=== PATIENT | male | born 1955 | race Caucasian/White ===

== ENCOUNTER 2020-05-08 17:25 | Inpatient (IN) | payer BC ==
[2020-05-08] MEDS ORDERED: diphenhydrAMINE 50 MG/ML VIAL ONE (18:18)
[2020-05-08] MEDS ORDERED: Metoclopramide HCl 10 MG/2 ML VIAL ONE (18:18)
[2020-05-08 18:28] LABS: #Eosinphils 0.1 10x3/uL (0.0-0.5); #Monocytes 0.6 10x3/uL (0.0-1.1); #Neutrophils 5.3 10x3/uL (1.5-8.4); %Basophils 0.4 % (0.0-2.0); %Lymphocytes 35.9 % (18.0-47.0); %Monocytes 6.4 % (0.0-10.0); %Neutrophils 55.9 % (40.0-75.0); Hemoglobin 14.3 g/dL (13.5-17.5); Mean Corpuscular HGB CONC 33.9 g/dL (32.0-36.0); Mean Corpuscular Volume 94.4 fl (81.2-95.1); Mean Platelet Volume 8.7 fl (7.4-10.4); Platelet Count 255 10x3/uL (150-450); RBC Distribution Width 12.4 % (11.5-14.5); Red Blood Cell (RBC) Count 4.47 10x6/uL (4.32-5.72); White Blood Cell (WBC) Count 9.6 10x3/uL (3.5-10.5)
[2020-05-08] MEDS ORDERED: Lidocaine 1% (PF) 30 ML VIAL ONE (18:37)
[2020-05-08 18:47] LABS: ALT (SGPT) 34 U/L (8-55); AST (SGOT) 20 U/L (5-34); Albumin 4.5 g/dL (3.4-4.8); Alkaline Phosphatase 64 U/L (40-110); Anion Gap 11 mmol/L (10-20); BUN (Urea Nitrogen) 20 mg/dL (8.4-25.7); Bilirubin, Total 0.6 mg/dL (0.2-1.2); Calc. Creatinine Clearance 0 mL/min (70-130); Calcium 9.4 mg/dL (7.8-10.44); Carbon Dioxide 28 mmol/L (23-31); Chloride 103 mmol/L (98-107); Globulin 2.8 g/dL (2.4-3.5); Glucose 111 mg/dL (80-115); Potassium 4.2 mmol/L (3.5-5.1); Protein, Total 7.3 g/dL (5.8-8.1); Sodium 138 mmol/L (136-145)
[2020-05-08 19:32] LABS: CSF, Glucose 47 mg/dl (40-70); CSF, Protein 167 mg/dL (15-40)
[2020-05-08 20:05] LABS: CSF Source CSF; Clarity Hazy (Clear); Tube # 1
[2020-05-08 20:08] LABS: CSF RBC Count - Manual 77 /cu.mm (None Seen); CSF WBC/NonHematics Count-Man 1475 /cu.mm (0-5)
[2020-05-08 20:11] LABS: Color Of CSF Supernatant COLORLESS (Colorless); Unspun CSF Color COLORLESS (Colorless)
[2020-05-08 20:15] LABS: Tube # 2
[2020-05-08] MEDS ORDERED: cefTRIAXone\\ROCEPHIN 2 GM VIAL ONE (20:35)
[2020-05-08 20:43] LABS: CSF Source CSF; Tube # 4
[2020-05-08 20:44] LABS: CSF RBC Count - Manual 10 /cu.mm (None Seen); CSF WBC/NonHematics Count-Man 1575 /cu.mm (0-5); Clarity Hazy (Clear)
[2020-05-08] MEDS ORDERED: Ondansetron PF 4 MG/2 ML Vial IVP PRN (21:24)
[2020-05-08] MEDS ORDERED: Ondansetron ODT 4 MG TAB PO PRN (21:24)
[2020-05-08 21:38] LABS: Lymphocytes 100 %
[2020-05-08 23:22] VITALS: BMI 27.6
[2020-05-08] MEDS: Ketorolac Tromethamine 30 MG/ML VIAL IVP SCH (23:57)
[2020-05-08] MEDS ORDERED: Morphine 2 MG/ML VIAL SLOW IVP PRN (23:58)
[2020-05-09] MEDS: Zolpidem Tartrate 5 MG TAB PO PRN ×2 (00:19→21:13)
[2020-05-09] MEDS: HYDROcodone/Acetaminophen 5/325 mg Tablet PO PRN ×5 (01:25→21:14)
[2020-05-09 05:09] LABS: Mean Corpuscular HGB CONC 33.2 g/dL (32.0-36.0); Mean Corpuscular Hemoglobin 31.5 pg (27.0-33.0); Mean Corpuscular Volume 94.9 fl (81.2-95.1); Mean Platelet Volume 8.4 fl (7.4-10.4); Platelet Count 226 10x3/uL (150-450); RBC Distribution Width 12.4 % (11.5-14.5); Red Blood Cell (RBC) Count 4.13 10x6/uL (4.32-5.72)
[2020-05-09 05:12] LABS: Anion Gap 12 mmol/L (10-20); BUN (Urea Nitrogen) 18 mg/dL (8.4-25.7); Calc. Creatinine Clearance 105 mL/min (70-130); Calcium 8.4 mg/dL (7.8-10.44); Carbon Dioxide 28 mmol/L (23-31); Chloride 105 mmol/L (98-107); Glucose 91 mg/dL (80-115); Magnesium 1.9 mg/dL (1.6-2.6); Potassium 4.4 mmol/L (3.5-5.1); Sodium 141 mmol/L (136-145)
[2020-05-09 05:45] LABS: MDiff Complete? YES
[2020-05-09 05:50] LABS: Eosinophils 1 % (0-10); Lymphocytes 58 % (21-51); Monocytes 3 % (0-10); Neutrophil 38 % (42-75)
[2020-05-09 05:52] LABS: Platelet Morphology Comment Appears Adequate; RBC Morphology Normal
[2020-05-09] MEDS ORDERED: Vancomycin 1.5 GRAM/300 ML BAG 1.5 GM in Premix Bag 1 BAG IVPB SCH ×2 (06:00→08:00)
[2020-05-09] MEDS: Ketorolac Tromethamine 30 MG/ML VIAL IVP SCH ×3 (06:46→18:13)
[2020-05-09] MEDS: Finasteride 5 MG TAB PO SCH (08:16)
[2020-05-09] MEDS: Aspirin 81 mg Enteric Coated Tablet PO SCH (08:16)
[2020-05-09] MEDS: Atorvastatin Calcium 20 MG TAB PO SCH (08:16)
[2020-05-09] MEDS: Ascorbic Acid 500 mg Chewable Tablet PO SCH (08:16)
[2020-05-09] MEDS: Famotidine 20 MG TAB PO SCH ×2 (08:16→21:13)
[2020-05-09] MEDS: Multivit, Therapeutic 1 TAB PO SCH (08:16)
[2020-05-09] MEDS: Enoxaparin Sodium 40 MG/0.4 ML SYRINGE SC SCH (08:17)
[2020-05-09] MEDS ORDERED: cefTRIAXone\\ROCEPHIN 2 GM in Sodium Chloride 0.9% 100 ML IVPB SCH ×2 (09:00→21:00)
[2020-05-09] MEDS ORDERED: Vancomycin 1 GM in Premix Bag 1 BAG IVPB SCH (09:00)
[2020-05-09] MEDS: Lorazepam 1 MG TAB PO PRN ×2 (10:40→17:23)
[2020-05-09] MEDS ORDERED: Ampicillin 2 GM in Sodium Chloride 0.9% 100 ML IVPB SCH (12:00)
[2020-05-09 19:08] LABS: HIV (1/2) Antibody/Antigen Non-Reactive (NonReactive); HIV 1/2 INDEX 0.07 S/CO (<1.00); Syphilis Antibody Nonreactive (Nonreactive); Syphilis Antibody Index 0.15 S/CO (<1.00 Non-Reactive)
[2020-05-10] MEDS: Ketorolac Tromethamine 30 MG/ML VIAL IVP SCH ×3 (00:55→11:57)
[2020-05-10] MEDS: Lorazepam 1 MG TAB PO PRN ×2 (03:23→11:01)
[2020-05-10] MEDS: HYDROcodone/Acetaminophen 5/325 mg Tablet PO PRN (04:31)
[2020-05-10 05:21] LABS: #Eosinphils 0.2 10x3/uL (0.0-0.5); #Monocytes 0.6 10x3/uL (0.0-1.1); #Neutrophils 3.9 10x3/uL (1.5-8.4); %Basophils 0.5 % (0.0-2.0); %Eosinophils 1.9 % (0.0-6.0); %Lymphocytes 39.1 % (18.0-47.0); %Monocytes 7.9 % (0.0-10.0); %Neutrophils 50.3 % (40.0-75.0); Hemoglobin 12.7 g/dL (13.5-17.5); Mean Corpuscular HGB CONC 33.2 g/dL (32.0-36.0); Mean Corpuscular Hemoglobin 31.8 pg (27.0-33.0); Mean Corpuscular Volume 95.7 fl (81.2-95.1); Mean Platelet Volume 8.7 fl (7.4-10.4); Platelet Count 214 10x3/uL (150-450); RBC Distribution Width 12.1 % (11.5-14.5); Red Blood Cell (RBC) Count 3.99 10x6/uL (4.32-5.72); White Blood Cell (WBC) Count 7.8 10x3/uL (3.5-10.5)
[2020-05-10 05:34] LABS: ALT (SGPT) 27 U/L (8-55); AST (SGOT) 18 U/L (5-34); Albumin 3.9 g/dL (3.4-4.8); Alkaline Phosphatase 59 U/L (40-110); Anion Gap 10 mmol/L (10-20); BUN (Urea Nitrogen) 22 mg/dL (8.4-25.7); Bilirubin, Total 0.7 mg/dL (0.2-1.2); Calc. Creatinine Clearance 106 mL/min (70-130); Calcium 8.5 mg/dL (7.8-10.44); Carbon Dioxide 29 mmol/L (23-31); Chloride 104 mmol/L (98-107); Globulin 2.3 g/dL (2.4-3.5); Glucose 102 mg/dL (80-115); Potassium 4.1 mmol/L (3.5-5.1); Protein, Total 6.2 g/dL (5.8-8.1); Sodium 139 mmol/L (136-145)
[2020-05-10 07:08] LABS: Vancomycin, Trough 5.9 ug/mL
[2020-05-10] MEDS: Famotidine 20 MG TAB PO SCH (08:34)
[2020-05-10] MEDS: Atorvastatin Calcium 20 MG TAB PO SCH (08:34)
[2020-05-10] MEDS: Ascorbic Acid 500 mg Chewable Tablet PO SCH (08:34)
[2020-05-10] MEDS: Finasteride 5 MG TAB PO SCH (08:34)
[2020-05-10] MEDS: Aspirin 81 mg Enteric Coated Tablet PO SCH (08:34)
[2020-05-10] MEDS: Multivit, Therapeutic 1 TAB PO SCH (08:34)
[2020-05-10] MEDS: Enoxaparin Sodium 40 MG/0.4 ML SYRINGE SC SCH (08:35)
[2020-05-10] MEDS: Acyclovir 200 mg Capsule PO SCH ×3 (08:35→16:09)
[2020-05-10] MEDS: Acetaminophen 325 MG TAB PO PRN ×2 (10:58→15:01)
[2020-05-10] MEDS ORDERED: Senokot 8.6 MG TAB PO PRN (14:31)
[2020-05-10] MEDS ORDERED: Polyethylene Glycol 3350 17 GM Packet PO PRN (14:31)
[2020-05-10] MEDS ORDERED: Ibuprofen 800 MG TAB PO PRN (14:31)
[2020-05-10 15:10] VITALS: BP 153/91; TEMP 97.8
== END 2020-05-10 16:49 | disposition home or self-care (01) | DRG 99 ==
LOC: CSHERS 17:25 → CSHTELE 23:08
PROVIDERS: ADMIT Internal Medicine; ATTEND Internal Medicine
PROC: 009U3ZX Drainage of Spinal Canal, Percutaneous Approach, Diagnostic (ICD-10-PCS; principal; 2020-05-08)
DX: G03.0 Nonpyogenic meningitis (principal); E78.5 Hyperlipidemia, unspecified; N40.0 Benign prostatic hyperplasia without lower urinary tract symptoms; Z86.19 Personal history of other infectious and parasitic diseases; Z79.82 Long term (current) use of aspirin; Z79.899 Other long term (current) drug therapy; R11.2 Nausea with vomiting, unspecified; Z95.0 Presence of cardiac pacemaker
CPT/HCPCS: 36415; 62270; 70450; 80048; 80053; 80202; 82945; 83735; 84157; 85025; 85060; 86780; 87070; 87205; 87389; 87498; 87529; 89051; 96365; 96366; 96375; J0290; J0696; J1200; J1650; J1885; J2001; J2765; J3370; J3490

== ENCOUNTER 2021-04-17 12:19 | Emergency (ER) | payer MEDICARE, BC ==
[2021-04-17] MEDS ORDERED: diphenhydrAMINE 50 MG/ML VIAL ONE (13:51)
[2021-04-17] MEDS ORDERED: Ketorolac Tromethamine 30 MG/ML VIAL ONE (13:51)
[2021-04-17] MEDS ORDERED: Cyclobenzaprine 10 MG TAB ONE (13:52)
[2021-04-17] MEDS ORDERED: Metoclopramide HCl 10 MG/2 ML VIAL ONE (13:52)
[2021-04-17] MEDS ORDERED: traMADol HCl 50 MG TAB ONE (14:59)
== END 2021-04-17 15:38 | disposition home or self-care (01) ==
LOC: CSHERS 12:19
DX: R51.9 Headache, unspecified (principal); M62.838 Other muscle spasm; E78.2 Mixed hyperlipidemia; I10 Essential (primary) hypertension; W00.0XXA Fall on same level due to ice and snow, initial encounter
CPT/HCPCS: 70450; 72125; 96374; 96375; J1200; J1885; J2765

== ENCOUNTER 2022-05-18 08:08 | Outpatient (CLI) | payer MEDICARE, BC | END 2022-05-18 08:09 | disposition home or self-care (01) | LOC: CSHCT 08:08 | PROVIDERS: ATTEND Family Medicine | DX: M48.062 Spinal stenosis, lumbar region with neurogenic claudication (principal); M51.36 Other intervertebral disc degeneration, lumbar region; M48.061 Spinal stenosis, lumbar region without neurogenic claudication; M51.26 Other intervertebral disc displacement, lumbar region | CPT/HCPCS: 72131 ==

== ENCOUNTER 2023-04-13 10:47 | Outpatient (CLI) | payer MEDICARE ==
[2023-04-13] MEDS ORDERED: Iopamidol 300 61% 100 ML VIAL FS ONE (12:34)
== END 2023-04-13 10:48 | disposition home or self-care (01) ==
LOC: CSHCT 10:47
PROVIDERS: ATTEND Surgery
DX: R10.30 Lower abdominal pain, unspecified (principal); R59.1 Generalized enlarged lymph nodes
CPT/HCPCS: 74177; 82565; Q9967

== ENCOUNTER 2023-12-21 10:13 | Outpatient (CLI) | payer MEDICARE | END 2023-12-21 10:14 | disposition home or self-care (01) | LOC: CSHCT 10:13 | PROVIDERS: ATTEND Family Medicine | DX: M54.2 Cervicalgia (principal); R59.0 Localized enlarged lymph nodes; M47.812 Spondylosis without myelopathy or radiculopathy, cervical region; R19.09 Other intra-abdominal and pelvic swelling, mass and lump; R16.1 Splenomegaly, not elsewhere classified | CPT/HCPCS: 72052; 74177 ==